=== PATIENT | female | born 1985 | race Hispanic/Latino ===

== ENCOUNTER → 2022-01-29 10:57 | Outpatient (CLI) | payer SELFPAY | PROVIDERS: Referring Provider Internal Medicine; Visit Provider Internal Medicine | DX: Z23 Encounter for immunization (principal) | CPT/HCPCS: 90471; 90686 ==

== ENCOUNTER → 2022-03-23 17:55 | Outpatient (CLI) | payer OTHER, SELFPAY ==
[2022-03-23 18:54] LABS: Influenza A - CEPHEID Flu A NEGATIVE (NEGATIVE); Influenza B - CEPHEID Flu B NEGATIVE (NEGATIVE); Respiratory Syncytial Virus Negative (Negative)
[2022-03-23 18:59] LABS: COVID-19 CEPHEID 4-PLEX PCR Negative (Negative)
== END ==
PROVIDERS: Visit Provider Physician Assistant
DX: R09.81 Nasal congestion (principal)
CPT/HCPCS: 0241U

== ENCOUNTER → 2022-11-06 12:27 | Outpatient (CLI) | payer OTHER, SELFPAY ==
--- NOTE | 2022-11-06 | DI.RAD.S_ITS ---
PROCEDURE: XR CERVICAL SPINE 2V OR 3V INDICATIONS: NECK PAIN TECHNIQUE: 3 view(s) of the cervical spine were acquired. COMPARISON: None. FINDINGS: Bones: No fractures or dislocations to the C7 level. The lateral masses of C1 appear intact on the odontoid view. No suspicious bony lesions. There is loss of the normal lordotic curvature of the cervical spine. Disc space narrowing at C5-6. Soft tissues: No prevertebral soft tissue swelling. IMPRESSION: Degenerative disc disease at C5-6. Dictated by: Patrick Escobedo M.D. on 11/06/2022 at 13:37 Approved by: aPtrick Escobedo M.D. on 11/06/2022 at 13:38
[2022-11-06 13:44] LABS: HCG Quantitative /Beta subunit 14885 mIU/mL
== END ==
PROVIDERS: PCP Family Medicine; Referring Provider Family Medicine; Visit Provider Family Medicine
DX: E03.9 Hypothyroidism, unspecified (principal); Z34.90 Encounter for supervision of normal pregnancy, unspecified, unspecified trimester
CPT/HCPCS: 36415; 72040; 84702

== ENCOUNTER → 2022-12-20 16:51 | Outpatient (CLI) | payer OTHER, SELFPAY ==
--- NOTE | 2022-12-20 16:53 | DI.US.S_ITS ---
PROCEDURE: US OB <= 14 WEEKS FETUS INDICATIONS: SIZE AND DATES OUTSIDE/PRIOR DATING DATA: Last menstrual period (LMP): 10/01/2022. LMP-based estimated date of delivery (ALYSSA): 07/08/2023. First dating scan (date and location): Today 12/20/2022. Estimated date of delivery (ALYSSA) from first dating scan: 07/04/2023. TECHNIQUE: Real-time scanning was performed of the fetus and maternal pelvic organs, with image documentation. COMPARISON: None. FINDINGS: [place]-rump length is 5.2 cm corresponding to an ultrasound age of 12 weeks. Heart rate is 163 beats per minute. Placenta is posterior. IMPRESSION: Living intrauterine gestation, clinical dates concordant with ultrasound. Ultrasound age is 12 weeks. Dictated by: Gabino Apodaca M.D. on 12/20/2022 at 19:03 Approved by: Gabino Apodaca M.D. on 12/20/2022 at 19:05
== END ==
PROVIDERS: PCP Family Medicine; Referring Provider Family Medicine; Visit Provider Family Medicine
DX: Z36.87 Encounter for antenatal screening for uncertain dates (principal); Z3A.12 12 weeks gestation of pregnancy
CPT/HCPCS: 76801

== ENCOUNTER → 2023-01-15 08:35 | Outpatient (CLI) | payer OTHER, SELFPAY | PROVIDERS: Family Provider Family Medicine; PCP Family Medicine; Visit Provider Nurse Practitioner Family | DX: J02.9 Acute pharyngitis, unspecified (principal) | CPT/HCPCS: 87070 ==

== ENCOUNTER → 2023-02-06 16:33 | Outpatient (CLI) | payer OTHER, SELFPAY | PROVIDERS: Family Provider Family Medicine; PCP Family Medicine; Referring Provider Family Medicine; Visit Provider Family Medicine | DX: Z23 Encounter for immunization (principal) | CPT/HCPCS: 90471; 90686 ==

== ENCOUNTER → 2023-02-14 18:12 | Outpatient (CLI) | payer OTHER, SELFPAY | PROVIDERS: Family Provider Family Medicine; PCP Family Medicine; Visit Provider Physician Assistant | DX: R30.0 Dysuria (principal) | CPT/HCPCS: 87086 ==

== ENCOUNTER 2023-02-14 18:42 | Emergency (ER) | payer OTHER, SELFPAY ==
[2023-02-14 18:46] VITALS: BP 141/79; PULSE 83; RESP 16; TEMP 36.6; O2SAT 100; BMI 41.5
[2023-02-14 18:51] VITALS: PULSE 78; O2SAT 100
[2023-02-14 19:11] VITALS: BP 117/58; RESP 16
[2023-02-14 19:15] LABS: Add Manual Diff / Slide Review NO; Basophils Absolute Auto 100 /uL (0-100); Basophils Percent Auto 0.5 % (0-2); Eosinophils Absolute Auto 0 /uL (0-450); Eosinophils Percent Auto 0.3 % (2-4); Hematocrit 38.9 % (36-46); Hemoglobin 13.7 g/dL (12.0-16.0); Lymphocytes Absolute Auto 1100 /uL (1100-4500); Mean Corpuscular HGB Conc 35.1 % (30-36); Mean Corpuscular Hemoglobin 32.7 PG (26-34); Monocytes Absolute Auto 500 /uL (0-900); Monocytes Percent Auto 3.4 % (3-14); Neutrophils Absolute Auto 12300 /uL (1500-7000); Neutrophils Percent Auto 87.8 % (50-75); Platelet Count 226 X10^3/uL (150-400); Red Blood Cell Count 4.18 X10^6/uL (4.0-5.2); Red Cell Distribution Width 13.4 % (11.6-14.8)
[2023-02-14 19:22] LABS: Alanine Aminotransferase 27 IU/L (<35); Albumin Globulin Ratio 1.2 (1.0-2.8); Alkaline Phosphatase 71 U/L (38-126); Aspartate Aminotransferase 25 IU/L (14-36); BUN Creatinine Ratio 14.5 (6-22); Bilirubin Total 0.4 mg/dL (0.2-1.3); Blood Urea Nitrogen 9 mg/dL (7-17); Calcium 9.1 mg/dL (8.4-10.2); Carbon Dioxide 22 mmol/L (22-32); Chloride 100 mmol/L (98-107); Estimated Glomerular Filt Rate > 60 mL/min (>60); Globulin 3.4 g/dL (1.7-4.1); Glucose 108 mg/dL (70-100); HEMOLYSIS < 15 (0-50); Lipase 107 U/L (23-300); Potassium 3.5 mmol/L (3.4-5.1); Sodium 132 mmol/L (137-145); Total Protein 7.4 g/dL (6.3-8.2)
[2023-02-14] MEDS: SODIUM CHLORIDE 0.9% 1,000 ML 1000 ML IV (19:25)
--- NOTE | 2023-02-14 20:35 | ED.PREGNANCY ---
HPI - General Chief complaint: Abdominal Pain Stated complaint: abd pain/ 19 weeks Time Seen by Provider: 02/14/23 18:52 Source: patient Mode of arrival: Ambulatory Limitations: no limitations History of Present Illness HPI Narrative: 37-year-old female 19 weeks and 3 days with history of anxiety, hypothyroidism, on aspirin 81 mg daily. Patient notes today at about 3:00 p.m. she started having significant left-sided abdominal pain on the anterior abdomen radiating laterally but not to the flank. She states it lasted for about 2 hours coming and going in waves, she had some nausea and vomiting x2. She felt sweaty each time. Lightheaded but no passing out. No chest pain no shortness of breath no fevers or chills. She is been having regular stools no black or bloody stools, no dysuria urgency but has had frequency. She states her your leg bloody. No discharge. She denies any vaginal bleeding or fluid leakage. Patient states she is had a prior cholecystectomy she states it felt similar to when she had gallstones. She is had prior . Allergic to Zoloft. No tobacco, alcohol or illicit. Her care is in [place]. Related Data Home Medications Medication Instructions Recorded Confirmed levothyroxine 50 mcg capsule 50 mcg PO DAILY 03/23/22 02/14/23 venlafaxine 150 mg 150 mg PO DAILY 03/23/22 02/14/23 capsule,extended release 24 hr triamcinolone acetonide 0.1 % 1 applic topical DAILY 08/14/22 02/14/23 topical cream Previous Rx's Medication Instructions Recorded albuterol sulfate 90 mcg/actuation 2 puff inhalation Q4H PRN 08/14/22 aerosol inhaler shortness of breath or wheezing #8.5 grams Allergies Allergy/AdvReac Type Severity Reaction Status Date / Time sertraline [From Zoloft] Allergy Mild Panic Verified 02/14/23 18:31 attacks Review of Systems Review of Systems ROS Unobtainable: All systems reviewed & are unremarkable except as noted in HPI and below Exam Narrative Exam Narrative: GEN: Obese well appearing female, alert and oriented x 3, patient appears to be in mild distress. HEENT: Atraumatic, pupils are equal round reactive to light, extraocular movements are intact, nares are clear, there is no conjunctival pallor. Throat is clear without any exudates, erythema, tonsillar enlargement or uvular deviation HEART: Regular rate and rhythm without murmur, clicks, rubs. LUNGS:Lungs clear to auscultation, no wheezes, rales, crackles, chest moves symmetrically ABD:bowel sounds normal, soft, very mild left upper quadrant tenderness, no guarding, rebound, rigidity, no masses noted, no hepatosplenomegaly :No CVA tenderness, gravid. MSCL: Non-tender, no muscle atrophy, muscles strength 5/5 upper and lower extremities, full range of motion, normal gait NEURO:CN 2-12 intact, sensation normal SKIN: No rash, erythema or other skin changes Initial Vital Signs Initial Vital Signs: Vital Signs Temperature 97.9 F 02/14/23 18:46 Pulse Rate 83 02/14/23 18:46 Respiratory Rate 16 02/14/23 18:46 Blood Pressure 141/79 H 02/14/23 18:46 Pulse Oximetry 100 02/14/23 18:46 Oxygen Delivery Method Room Air 02/14/23 18:46 Course Orders Ordered: ED Orders 02/14/23 20:10 Urinalysis and Microscopic Stat 02/14/23 20:34 US OB limited Stat Discontinued Medications Sodium Chloride (Normal Saline 0.9%) 1,000 mls @ 1,000 mls/hr IV BOLUS ONE Stop: 02/14/23 19:51 Last Infusion: 02/14/23 20:35 Dose: Infused Documented By: Admin: 02/14/23 19:25 Dose: 1,000 mls/hr Documented By: SHANTAL Ondansetron HCl (Ondansetron 4 Mg/2 Ml Inj) 4 mg IV NOW ONE Stop: 02/14/23 18:53 Last Admin: 02/14/23 19:25 Dose: Not Given Documented By: SB Vital Signs Vital signs: Vital Signs - 8 hr 02/14/23 22:29 02/14/23 22:30 02/14/23 22:30 Pulse Rate 87 Blood Pressure 109/60 Pulse Oximetry 100 100 [facility] - OB/Uterine Contractions Lab Data 02/14/23 19:03 02/14/23 19:03 Labs: Lab Results 02/14/23 02/14/23 Range/Units 19:03 20:10 WBC 14.0 H (4.5-11.0) X10^3/uL RBC 4.18 (4.0-5.2) X10^6/uL Hgb 13.7 (12.0-16.0) g/dL Hct 38.9 (36-46) % MCV 93.0 (80-100) fL MCH 32.7 (26-34) PG MCHC 35.1 (30-36) % RDW 13.4 (11.6-14.8) % Plt Count 226 (150-400) X10^3/uL Neut % (Auto) 87.8 H (50-75) % Lymph % (Auto) 8.0 L (25-40) % [place] % (Auto) 3.4 (3-14) % Eos % (Auto) 0.3 L (2-4) % Baso % (Auto) 0.5 (0-2) % Neut # (Auto) 24634 H (8309-1805) /uL Lymph # (Auto) 1100 (5488-9964) /uL Beaver # (Auto) 500 (0-900) /uL Eos # (Auto) 0 (0-450) /uL Baso # (Auto) 100 (0-100) /uL Sodium 132 L (137-145) mmol/L Potassium 3.5 (3.4-5.1) mmol/L Chloride 100 (98-107) mmol/L Carbon Dioxide 22 (22-32) mmol/L BUN 9 (7-17) mg/dL Creatinine 0.62 (0.52-1.04) mg/dL Estimated GFR > 60 (>60) mL/min BUN/Creatinine Ratio 14.5 (6-22) Glucose 108 H (70-100) mg/dL Calcium 9.1 (8.4-10.2) mg/dL Total Bilirubin 0.4 (0.2-1.3) mg/dL AST 25 (14-36) IU/L ALT 27 (<35) IU/L Alkaline Phosphatase 71 (38-126) U/L Total Protein 7.4 (6.3-8.2) g/dL Albumin 4.0 (3.5-5.0) g/dL Globulin 3.4 (1.7-4.1) g/dL Albumin/Globulin Ratio 1.2 (1.0-2.8) Lipase 107 (23-300) U/L Urine Color Yellow Urine Appearance Clear Urine pH 5.5 (4.5-8.0) Ur Specific [place] <=1.005 (1.000-1.035) Urine Protein Negative (Negative) Urine Glucose (UA) Negative (Negative) g/dL Urine Ketones 2+ H (NEGATIVE) Urine Occult Blood Negative (Negative) Urine Nitrate Negative (Negative) Urine Bilirubin Negative (NEGATIVE) Urine Urobilinogen 1.0 (0.2) E.U./dL Ur Leukocyte Esterase Negative (NEGATIVE) Urine RBC None seen (0-5/HPF) Urine WBC None seen (0-5/HPF) Ur Squamous Epith Cells 0-1 /hpf (0-5/HPF) Urine Bacteria None seen (None) Ur Culture Indicated? Cult not indicated Urine Dip Bedside Urine Glucose Negative Bedside Urine Bilirubin - Negative Bedside Urine Ketone ++ 40 Urine Specific [place] 1.005 Bedside Urine Occult Blood - Negative Bedside Urine pH 6.0 Bedside Urine Protein - Negative Bedside Urine Urobilinogen - Negative Bedside Urine Nitrite - Negative Bedside Urine Leukocytes - Negative Esterase Imaging Data US - OB: Radiologist's Impression: Close Obstetrics Ultrasound (Signed) Clayton Cantu - 02/14/23 Ultrasound (Signed) Gabino Apodaca - 12/20/22 Cervical Spine X-Ray (Signed) Patrick Escobedo - 11/06/22 Launch?[place] [address] Ultrasound Report Signed Patient: An Jett MR#: [id number] : 1985 Acct:[id number] Age/Sex: 37 / F Date of Service: 02/14/23 Loc: ED Accession Number: [id number] Procedure: US OB limited Ordering Provider: Patricia Loving D.O. PROCEDURE: US OB LIMITED INDICATIONS: LEFT SIDE PAIN OUTSIDE/PRIOR DATING DATA: Last menstrual period (LMP): 10/01/2022. LMP-based estimated date of delivery (ALYSSA): 07/08/2023. First dating scan (date and location): 12/20/2022. Estimated date of delivery (ALYSSA) from first dating scan: 07/04/2023. TECHNIQUE: Real-time scanning was performed of the fetus, with image documentation. Endovaginal scanning: Not performed COMPARISON: [facility], , OB <= 14 WEEKS FETUS, 12/20/2022, 17:01. FINDINGS: A single living intrauterine gestation is present. Presentation: Vertex. Placenta: Placental position is posterior, without previa. Amniotic fluid index: 14.3 cm, normal range is 5-24 cm. Single deepest vertical pocket is 4.4 cm. heart rate: 131 beats per minute. Maternal cervical canal: 4.7 cm long. Normal lower limit is 2.5 cm. estimated gestational age: 19 weeks 3 days Left maternal pelviectasis without rush hydronephrosis IMPRESSION: 1. Single living intrauterine . 2. No evidence of placental abruption. 3. Maternal cervix is long and closed. Dictated by: Clayton Cantu M.D. on 02/14/2023 at 22:35 Approved by: Clayton Cantu M.D. on 02/14/2023 at 22:38 MDM Narrative Medical decision making narrative: female female 19 weeks with left lower abdominal pain that has since improved but is still slightly present. Patient has a white count of 14 otherwise normal CBC, CMP, LFTs, urine did not show blood, no protein to have some ketones. Initial blood pressure was 140/79 but repeats have been much more appropriate at 117. and patient does not have any right upper quadrant tenderness. Discussed with patient would like to obtain OB ultrasound and left-sided abdominal ultrasound, her urine does not show signs of making kidney stones or infection less likely. OB ultrasound/limited abdominal with kidney preliminary does not show any acute change. Patient does not wish to continue to wait for the report to come back we discussed there could be discrepancy. She understands pain is controlled at this time. Blood pressure has improved here in the department. Patient's urine does not show obvious signs of infection. Patient is felt appropriate for discharge home but discussed if she is having worsening symptoms needs to return. Ultrasound OB limited shows no acute change 19 weeks and 3 days with a heart rate of 131 left maternal palpitations without rush hydronephrosis. Discharge Plan Departure Patient Disposition: Home Clinical Impression: Abdominal pain affecting Instructions: DI for Abdominal Pain -- Early Activity Restrictions/Additional Instructions: Please follow-up with your physician for recheck. Your imaging is still pending I do not have the final report. Please return for new or worsening pain, fevers, persistent vomiting, lightheadedness or passing out, vaginal bleeding, new swelling in her extremities or other new or concerning changes. Prescriptions: No Action venlafaxine 150 mg capsule,extended release 24hr 150 mg PO DAILY levothyroxine 50 mcg capsule 50 mcg PO DAILY triamcinolone acetonide 0.1 % cream 1 applic topical DAILY albuterol sulfate 90 mcg/actuation HFA aerosol inhaler 2 puff inhalation Q4H PRN (Reason: shortness of breath or wheezing) Qty: 8.5 3RF Referrals: Loree Ashton DO [Primary Care Provider] - Stand Alone Forms: Patient Portal/API
[2023-02-14 21:21] LABS: Appearance Urine UA CLEAR; Bilirubin Urine UA NEGATIVE (NEGATIVE); Color Urine UA YELLOW; Glucose Urine UA NEGATIVE (Negative); Ketones Urine UA 2+ (NEGATIVE); Leukocyte Esterase Urine UA NEGATIVE (NEGATIVE); Nitrite Urine UA NEGATIVE (Negative); Occult Blood Urine UA NEGATIVE (Negative); Protein Urine UA NEGATIVE (Negative); Specific Gravity Urine UA <=1.005 (1.000-1.035)
[2023-02-14 21:40] LABS: pH Urine UA 5.5 (4.5-8.0)
[2023-02-14 21:52] LABS: Bacteria Urine None Seen; Culture Indicated Urine Cult Not Indicated; RBC Urine None Seen (0-5/HPF); Squamous Epithelial Cell Urine 0-1 /HPF (0-5/HPF); WBC Urine None Seen (0-5/HPF)
[2023-02-14 22:29] VITALS: O2SAT 100
[2023-02-14 22:30] VITALS: BP 109/60; PULSE 87; O2SAT 100
== END 2023-02-14 22:35 | disposition home or self-care (01) ==
PROVIDERS: Emergency Provider Emergency Medicine; Family Provider Family Medicine; PCP Family Medicine
DX: O26.92 Pregnancy related conditions, unspecified, second trimester (principal); R10.9 Unspecified abdominal pain; Z3A.19 19 weeks gestation of pregnancy; R30.0 Dysuria
CPT/HCPCS: 36415; 76815; 80053; 81001; 81003; 83690; 85025; 87086; 96360; 99284

== ENCOUNTER 2023-02-18 10:00 | Outpatient (RCR) | payer OTHER, SELFPAY ==
--- NOTE | 2023-01-16 15:45 | PT.OIE ---
Current Diagnoses Paresthesia of skin (01/16/23) Past Medical History (Last Updated 11/06/22 @ 12:21 by Loree Ashton DO) Encounter for IUD removal (~08/14/22) GDM (gestational diabetes mellitus) Visit Care Team Role Provider Type Loree Ashton DO Attending Provider Physician Family Provider Primary Care Provider Referring Provider Specialty: Medical Address: [address] [place] [address], [address], [place], [address] Email: [email or web address] Physical Therapy Initial Evaluation PT-OP-A Visit Information Start: 01/16/23 13:32 Freq: Status: Active Protocol: Document 01/16/23 15:33 ED (Rec: 01/16/23 15:44 ED [id number]) Out-Patient Physical Therapy Visit Information Visit Information Visit Type Initial Evaluation Visit Start Time 13:15 Visit Stop Time 14:00 Total Visit Minutes 45 Visit Number 1 Evaluation Information Evaluation Date 01/16/23 PT-OP-B Current Condition Start: 01/16/23 13:32 Freq: Status: Active Protocol: Document 01/16/23 15:33 ED (Rec: 01/16/23 15:44 ED [id number]) Current Condition History of Current Condition Onset Date 2019 Current Complaints R radiculopathy History of Current Condition Pt states that when she had her child in 2019 that she was experiencing pretty intense radiculopathy in her R hand and sometimes up her arm. She denies it going away after having her child. She is currently and is here for the same radiculopathy. 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 She notes that when she sleeps, she sometimes has her R hand over her head and will wake up d/t paresthesia in her hand. She states the paresthesia starts in her pinky and ring finger. PT-OP-C Subjective Start: 01/16/23 13:32 Freq: Status: Active Protocol: Document 01/16/23 15:33 ED (Rec: 01/16/23 15:44 ED [id number]) Patient Questionnaires Quick Dash- Upper Extremity Quick Dash UE Score 27.3 / 100 = 27.3 % Quick Dash UE Impairment 20 to 39% Impaired (Score 20- 39) PT-OP-K Range of Motion Start: 01/16/23 13:32 Freq: Status: Active Protocol: Document 01/16/23 15:33 ED (Rec: 01/16/23 15:44 ED [id number]) Cervical Spine Range of Motion Cervical Spine Active Testing Position Sitting Flexion 50 Extension 60 Rotation Left 90 Rotation Right 90 Shoulder Goniometric Range of Motion Shoulder Right Active Shoulder ROM WFL Yes Testing Position Sitting Flexion 170 Abduction 170 Left Active Shoulder ROM WFL Yes Testing Position Sitting Flexion 170 Abduction 170 PT-OP-L Special Tests Start: 01/16/23 13:32 Freq: Status: Active Protocol: Document 01/16/23 15:33 ED (Rec: 01/16/23 15:44 ED [id number]) Special Tests Cervical Spine Special Tests Traction Test Results + Foraminal Compression Test Results - PT-OP-M Strength Start: 01/16/23 13:32 Freq: Status: Active Protocol: Document 01/16/23 15:33 ED (Rec: 01/16/23 15:44 ED [id number]) Shoulder Strength Shoulder Manual Muscle Testing Right Flexion 4+ Good+ Extension 4+ Good+ Abduction (C5) 4+ Good+ Left Flexion 4+ Good+ Extension 4+ Good+ Abduction (C5) 4+ Good+ PT-OP-T Assessment and Plan Start: 01/16/23 13:32 Freq: Status: Active Protocol: Document 01/16/23 15:33 ED (Rec: 01/16/23 15:44 ED [id number]) Physical Therapy Assessment Rehab Potential Rehabilitation Potential Fair Evaluation Complexity Number of Personal Factors/Comorbidities 1-2 Number of Body Systems Impaired 1-2 Clinical Presentation at Evaluation Stable Impairments Impairments Activity Tolerance,Sensation, Strength Goals QuickDASH Care Home Goal (LTG) Pt will improve QuickDash score by >9 points to a score of <18/100. LTG Duration 6 weeks % improvement Impairment % improvement Short Term Goal (STG) Pt will report 15% improvement in R hand paresthesia during daily activities and/or at night. STG Duration 3 weeks Lawyers Goal (LTG) Pt will report 40% improvement in R hand paresthesia during daily activities and/or at night. LTG Duration 6 weeks Assessment Summary Assessment Pt reported to PT c/ complaints of paresthesia in R hand that most often occurs at night or during daily activities that expose patient to positions for a prolonged period of time such as bike riding, working on a computer, or doing fine motor skills. Paresthesia seemed to follow ulnar nerve distribution. Paresthesia was not reproduced during evaluation today. Pt demonstrated good ROM in neck and shoulder that did not exacerbate paresthesia. Pt provided HEP of : ulnar nerve glides, thoracic rotation, open books, ulnar nerve glides and scalene stretch. PT will start with mobility and flexibility drills and progress to more resistance exercises if stretching does not initially offer relief. Pt encouraged to sleep while hugging pillow to avoid getting arm in overhead position which seems to consistently make her paresthesia worse.
--- NOTE | 2023-01-16 15:45 | PT.OPPOC ---
Physical, Occupational & Speech Therapy At [facility] Current Diagnoses Paresthesia of skin (01/16/23) Visit Care Team Role Provider Type Loree Ashton DO Attending Provider Physician Family Provider Primary Care Provider Referring Provider Specialty: Medical Address: [address] [place] [address], [address], [place], [address] Email: [email or web address] Plan Of Care PT-OP-T Assessment and Plan Start: 01/16/23 13:32 Freq: Status: Active Protocol: Document 01/16/23 15:33 ED (Rec: 01/16/23 15:44 ED [id number]) Physical Therapy Assessment Rehab Potential Rehabilitation Potential Fair Evaluation Complexity Number of Personal Factors/Comorbidities 1-2 Number of Body Systems Impaired 1-2 Clinical Presentation at Evaluation Stable Impairments Impairments Activity Tolerance,Sensation, Strength Goals QuickDASH Prison Goal (LTG) Pt will improve QuickDash score by >9 points to a score of <18/100. LTG Duration 6 weeks % improvement Impairment % improvement Short Term Goal (STG) Pt will report 15% improvement in R hand paresthesia during daily activities and/or at night. STG Duration 3 weeks Border Police Goal (LTG) Pt will report 40% improvement in R hand paresthesia during daily activities and/or at night. LTG Duration 6 weeks Assessment Summary Assessment Pt reported to PT c/ complaints of paresthesia in R hand that most often occurs at night or during daily activities that expose patient to positions for a prolonged period of time such as bike riding, working on a computer, or doing fine motor skills. Paresthesia seemed to follow ulnar nerve distribution. Paresthesia was not reproduced during evaluation today. Pt demonstrated good ROM in neck and shoulder that did not exacerbate paresthesia. Pt provided HEP of : ulnar nerve glides, thoracic rotation, open books, ulnar nerve glides and scalene stretch. PT will start with mobility and flexibility drills and progress to more resistance exercises if stretching does not initially offer relief. Pt encouraged to sleep while hugging pillow to avoid getting arm in overhead position which seems to consistently make her paresthesia worse. Electronically Signed by: Mao Guzman, PT 01/16/23 [id number] If you are in agreement with this Plan of Care, please return a signed and dated copy. I have reviewed this Plan of Care and certify that the skilled therapy services above are required to meet the patient?s needs. Physician Signature Date Printed Name and Credentials Clinical Instructor Signature Printed Name and Credentials
--- NOTE | 2023-01-21 15:48 | PT.OTN ---
Current Diagnoses Paresthesia of skin (01/21/23) Physical Therapy Treatment Note PT-OP-A Visit Information Start: 01/16/23 13:32 Freq: Status: Active Protocol: Document 01/21/23 15:42 ED (Rec: 01/21/23 15:48 ED [id number]) Out-Patient Physical Therapy Visit Information Visit Information Visit Type Treatment Note Visit Start Time 15:15 Visit Stop Time 15:45 Total Visit Minutes 30 Visit Number 2 PT-OP-B Current Condition Start: 01/16/23 13:32 Freq: Status: Active Protocol: Document 01/16/23 15:33 ED (Rec: 01/16/23 15:44 ED [id number]) Current Condition History of Current Condition Onset Date 2019 Current Complaints R radiculopathy History of Current Condition Pt states that when she had her child in 2019 that she was experiencing pretty intense radiculopathy in her R hand and sometimes up her arm. She denies it going away after having her child. She is currently and is here for the same radiculopathy. 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 She notes that when she sleeps, she sometimes has her R hand over her head and will wake up d/t paresthesia in her hand. She states the paresthesia starts in her pinky and ring finger. PT-OP-C Subjective Start: 01/16/23 13:32 Freq: Status: Active Protocol: Document 01/21/23 15:42 ED (Rec: 01/21/23 15:48 ED [id number]) OP-PT Subjective Patient Comments Patient Comments Pt states that the ulnar nerve glides worked well for her. She noticed much less paresthesia in her 4th and 5th digits of her R hand when waking up during the night but notes that she still had paresthesia in the rest of the fingers. PT-OP-K Range of Motion Start: 01/16/23 13:32 Freq: Status: Active Protocol: Document 01/16/23 15:33 ED (Rec: 01/16/23 15:44 ED [id number]) Cervical Spine Range of Motion Cervical Spine Active Testing Position Sitting Flexion 50 Extension 60 Rotation Left 90 Rotation Right 90 Shoulder Goniometric Range of Motion Shoulder Right Active Shoulder ROM WFL Yes Testing Position Sitting Flexion 170 Abduction 170 Left Active Shoulder ROM WFL Yes Testing Position Sitting Flexion 170 Abduction 170 PT-OP-L Special Tests Start: 01/16/23 13:32 Freq: Status: Active Protocol: Document 01/16/23 15:33 ED (Rec: 01/16/23 15:44 ED [id number]) Special Tests Cervical Spine Special Tests Traction Test Results + Foraminal Compression Test Results - PT-OP-M Strength Start: 01/16/23 13:32 Freq: Status: Active Protocol: Document 01/16/23 15:33 ED (Rec: 01/16/23 15:44 ED [id number]) Shoulder Strength Shoulder Manual Muscle Testing Right Flexion 4+ Good+ Extension 4+ Good+ Abduction (C5) 4+ Good+ Left Flexion 4+ Good+ Extension 4+ Good+ Abduction (C5) 4+ Good+ PT-OP-Q Treatments Start: 01/16/23 13:32 Freq: Status: Active Protocol: Document 01/21/23 15:42 ED (Rec: 01/21/23 15:48 ED [id number]) Therapeutic Exercises Supine Exercises bridge Comments staggered 2x10 Sidelying Exercises open book Reps/Minutes x10 ea Sitting Exercises pigeon stretch Reps/Minutes x30-60'' t-spine rotation Reps/Minutes x10 ulnar/median nerve glides Reps/Minutes x10 ea PT-OP-T Assessment and Plan Start: 01/16/23 13:32 Freq: Status: Active Protocol: Document 01/21/23 15:42 ED (Rec: 01/21/23 15:48 ED [id number]) Physical Therapy Assessment Goals QuickDASH Business Supervisor Goal (LTG) Pt will improve QuickDash score by >9 points to a score of <18/100. LTG Duration 6 weeks % improvement Impairment % improvement Short Term Goal (STG) Pt will report 15% improvement in R hand paresthesia during daily activities and/or at night. STG Duration 3 weeks Business Supervisor Goal (LTG) Pt will report 40% improvement in R hand paresthesia during daily activities and/or at night. LTG Duration 6 weeks Assessment Summary Assessment Pt reported improvements in ulnar nerve distribution paresthesia but continued to have symptoms in median nerve distribution. PT provided patient c/ HEP of median nerve glides to do throughout the day and before bed.
--- NOTE | 2023-01-24 08:50 | PT.OTN ---
Current Diagnoses Paresthesia of skin (01/24/23) Physical Therapy Treatment Note PT-OP-A Visit Information Start: 01/16/23 13:32 Freq: Status: Active Protocol: Document 01/24/23 08:43 ED (Rec: 01/24/23 08:50 ED [id number]) Out-Patient Physical Therapy Visit Information Visit Information Visit Type Treatment Note Visit Start Time 08:10 Visit Stop Time 08:50 Total Visit Minutes 40 Visit Number 3 PT-OP-B Current Condition Start: 01/16/23 13:32 Freq: Status: Active Protocol: Document 01/16/23 15:33 ED (Rec: 01/16/23 15:44 ED [id number]) Current Condition History of Current Condition Onset Date 2019 Current Complaints R radiculopathy History of Current Condition Pt states that when she had her child in 2019 that she was experiencing pretty intense radiculopathy in her R hand and sometimes up her arm. She denies it going away after having her child. She is currently and is here for the same radiculopathy. 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 She notes that when she sleeps, she sometimes has her R hand over her head and will wake up d/t paresthesia in her hand. She states the paresthesia starts in her pinky and ring finger. PT-OP-C Subjective Start: 01/16/23 13:32 Freq: Status: Active Protocol: Document 01/24/23 08:43 ED (Rec: 01/24/23 08:50 ED [id number]) OP-PT Subjective Patient Comments Patient Comments Pt notes that her hand paresthesia is improving especially when she does her exercises. She hasn't been doing them every night though. PT-OP-K Range of Motion Start: 01/16/23 13:32 Freq: Status: Active Protocol: Document 01/16/23 15:33 ED (Rec: 01/16/23 15:44 ED [id number]) Cervical Spine Range of Motion Cervical Spine Active Testing Position Sitting Flexion 50 Extension 60 Rotation Left 90 Rotation Right 90 Shoulder Goniometric Range of Motion Shoulder Right Active Shoulder ROM WFL Yes Testing Position Sitting Flexion 170 Abduction 170 Left Active Shoulder ROM WFL Yes Testing Position Sitting Flexion 170 Abduction 170 PT-OP-L Special Tests Start: 01/16/23 13:32 Freq: Status: Active Protocol: Document 01/16/23 15:33 ED (Rec: 01/16/23 15:44 ED [id number]) Special Tests Cervical Spine Special Tests Traction Test Results + Foraminal Compression Test Results - PT-OP-M Strength Start: 01/16/23 13:32 Freq: Status: Active Protocol: Document 01/16/23 15:33 ED (Rec: 01/16/23 15:44 ED [id number]) Shoulder Strength Shoulder Manual Muscle Testing Right Flexion 4+ Good+ Extension 4+ Good+ Abduction (C5) 4+ Good+ Left Flexion 4+ Good+ Extension 4+ Good+ Abduction (C5) 4+ Good+ PT-OP-Q Treatments Start: 01/16/23 13:32 Freq: Status: Active Protocol: Document 01/24/23 08:43 ED (Rec: 01/24/23 08:50 ED [id number]) Therapeutic Exercises Sidelying Exercises glute matrix Sidelying Exercise Name clam, R. clam, hip flexion, s/ l abd Reps/Minutes x10-15 ea Sitting Exercises ulnar/median nerve glides Reps/Minutes x10 ea Other Exercises banded walk Other Exercise Name lateral Resistance turquoise band Reps/Minutes 2x10 feet Therapeutic Activity Therapeutic Activity step up Name step up Reps/Minutes 2x10 Comments 8'' PT-OP-T Assessment and Plan Start: 01/16/23 13:32 Freq: Status: Active Protocol: Document 01/24/23 08:43 ED (Rec: 01/24/23 08:50 ED [id number]) Physical Therapy Assessment Goals QuickDASH Operators School Manager Goal (LTG) Pt will improve QuickDash score by >9 points to a score of <18/100. LTG Duration 6 weeks % improvement Impairment % improvement Short Term Goal (STG) Pt will report 15% improvement in R hand paresthesia during daily activities and/or at night. STG Duration 3 weeks Intermediate Goal (LTG) Pt will report 40% improvement in R hand paresthesia during daily activities and/or at night. LTG Duration 6 weeks Physical Therapy Plan Frequency and Duration Frequency of Treatment 2x/Week Duration of treatment (weeks) 10 Plan of Care Start Date 01/24/23 Plan of Care End Date 12/28/23 Therapeutic Interventions Therapeutic Interventions Home Exercise Program,Joint Mobilizations,Manual Therapy, Neuromuscular Re-education, Patient/Caregiver Education, Soft Tissue Mobilization, Taping,Therapeutic Activities, Therapeutic Exercises Next Visit Focus/Plan Next Note Type Treatment Note Next Visit Plan check paresthesia, glute matrix, banded walk, step up variations
--- NOTE | 2023-01-28 10:46 | PT.OTN ---
Current Diagnoses Paresthesia of skin (01/28/23) Physical Therapy Treatment Note PT-OP-A Visit Information Start: 01/16/23 13:32 Freq: Status: Active Protocol: Document 01/28/23 10:41 ED (Rec: 01/28/23 10:46 ED [id number]) Out-Patient Physical Therapy Visit Information Visit Information Visit Type Treatment Note Visit Start Time 10:00 Visit Stop Time 10:40 Total Visit Minutes 40 Visit Number 4 PT-OP-B Current Condition Start: 01/16/23 13:32 Freq: Status: Active Protocol: Document 01/16/23 15:33 ED (Rec: 01/16/23 15:44 ED [id number]) Current Condition History of Current Condition Onset Date 2019 Current Complaints R radiculopathy History of Current Condition Pt states that when she had her child in 2019 that she was experiencing pretty intense radiculopathy in her R hand and sometimes up her arm. She denies it going away after having her child. She is currently and is here for the same radiculopathy. 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 She notes that when she sleeps, she sometimes has her R hand over her head and will wake up d/t paresthesia in her hand. She states the paresthesia starts in her pinky and ring finger. PT-OP-C Subjective Start: 01/16/23 13:32 Freq: Status: Active Protocol: Document 01/28/23 10:41 ED (Rec: 01/28/23 10:46 ED [id number]) OP-PT Subjective Patient Comments Patient Comments Pt feels like her neck and radiculopathy are improving and just needs to be mindful of her sleeping positions. She felt like her R hip felt a little better after some of the exercises last week. PT-OP-K Range of Motion Start: 01/16/23 13:32 Freq: Status: Active Protocol: Document 01/16/23 15:33 ED (Rec: 01/16/23 15:44 ED [id number]) Cervical Spine Range of Motion Cervical Spine Active Testing Position Sitting Flexion 50 Extension 60 Rotation Left 90 Rotation Right 90 Shoulder Goniometric Range of Motion Shoulder Right Active Shoulder ROM WFL Yes Testing Position Sitting Flexion 170 Abduction 170 Left Active Shoulder ROM WFL Yes Testing Position Sitting Flexion 170 Abduction 170 PT-OP-L Special Tests Start: 01/16/23 13:32 Freq: Status: Active Protocol: Document 01/16/23 15:33 ED (Rec: 01/16/23 15:44 ED [id number]) Special Tests Cervical Spine Special Tests Traction Test Results + Foraminal Compression Test Results - PT-OP-M Strength Start: 01/16/23 13:32 Freq: Status: Active Protocol: Document 01/16/23 15:33 ED (Rec: 01/16/23 15:44 ED [id number]) Shoulder Strength Shoulder Manual Muscle Testing Right Flexion 4+ Good+ Extension 4+ Good+ Abduction (C5) 4+ Good+ Left Flexion 4+ Good+ Extension 4+ Good+ Abduction (C5) 4+ Good+ PT-OP-Q Treatments Start: 01/16/23 13:32 Freq: Status: Active Protocol: Document 01/28/23 10:41 ED (Rec: 01/28/23 10:46 ED [id number]) Cardio Equipment Treadmill Duration (Minutes) 8 Speed 2.0 Incline 4 Therapeutic Exercises Supine Exercises bridge Comments staggered 2x10 Sidelying Exercises glute matrix Sidelying Exercise Name clam, R. clam, hip flexion, s/ l abd Reps/Minutes x10-15 ea Other Exercises banded walk Other Exercise Name lateral Resistance turquoise band Reps/Minutes 2x10 feet Therapeutic Activity Therapeutic Activity step up Name cross over step up Reps/Minutes 3x10 Comments 8'' PT-OP-T Assessment and Plan Start: 01/16/23 13:32 Freq: Status: Active Protocol: Document 01/28/23 10:41 ED (Rec: 01/28/23 10:46 ED [id number]) Physical Therapy Assessment Goals QuickDASH Process Environmental Technician Goal (LTG) Pt will improve QuickDash score by >9 points to a score of <18/100. LTG Duration 6 weeks % improvement Impairment % improvement Short Term Goal (STG) Pt will report 15% improvement in R hand paresthesia during daily activities and/or at night. STG Duration 3 weeks Long-Term Goal (LTG) Pt will report 40% improvement in R hand paresthesia during daily activities and/or at night. LTG Duration 6 weeks Assessment Summary Assessment Pt reporting improved neck pain and radiculopathy symptoms with her stretches and adjusting her sleep positions. PT informed patient to continue trying to sleep with a pillow for shoulder support to mitigate chance of her having arm above head which typically brings her paresthesia in her hand. Physical Therapy Plan Frequency and Duration Frequency of Treatment 2x/Week Duration of treatment (weeks) 10 Plan of Care Start Date 01/24/23 Plan of Care End Date 04/24/23 Therapeutic Interventions Therapeutic Interventions Home Exercise Program,Joint Mobilizations,Manual Therapy, Neuromuscular Re-education, Patient/Caregiver Education, Soft Tissue Mobilization, Taping,Therapeutic Activities, Therapeutic Exercises Next Visit Focus/Plan Next Note Type Treatment Note Next Visit Plan check paresthesia, glute matrix (weighted?), banded walk, pigeon stretch, step up variations, quadruped hip stretch
--- NOTE | 2023-02-04 16:40 | PT.OTN ---
Current Diagnoses Paresthesia of skin (02/04/23) Physical Therapy Treatment Note PT-OP-A Visit Information Start: 01/16/23 13:32 Freq: Status: Active Protocol: Document 02/04/23 16:34 ED (Rec: 02/04/23 16:40 ED [id number]) Out-Patient Physical Therapy Visit Information Visit Information Visit Type Treatment Note Visit Start Time 16:00 Visit Stop Time 16:40 Total Visit Minutes 40 Visit Number 5 PT-OP-B Current Condition Start: 01/16/23 13:32 Freq: Status: Active Protocol: Document 01/16/23 15:33 ED (Rec: 01/16/23 15:44 ED [id number]) Current Condition History of Current Condition Onset Date 2019 Current Complaints R radiculopathy History of Current Condition Pt states that when she had her child in 2019 that she was experiencing pretty intense radiculopathy in her R hand and sometimes up her arm. She denies it going away after having her child. She is currently and is here for the same radiculopathy. 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 She notes that when she sleeps, she sometimes has her R hand over her head and will wake up d/t paresthesia in her hand. She states the paresthesia starts in her pinky and ring finger. PT-OP-C Subjective Start: 01/16/23 13:32 Freq: Status: Active Protocol: Document 02/04/23 16:34 ED (Rec: 02/04/23 16:40 ED [id number]) OP-PT Subjective Patient Comments Patient Comments Pt states that she has been slacking in doing her nerve flossing exercises before bed; she found a pillow that she can hug at night to help with the paresthesia. PT-OP-K Range of Motion Start: 01/16/23 13:32 Freq: Status: Active Protocol: Document 01/16/23 15:33 ED (Rec: 01/16/23 15:44 ED [id number]) Cervical Spine Range of Motion Cervical Spine Active Testing Position Sitting Flexion 50 Extension 60 Rotation Left 90 Rotation Right 90 Shoulder Goniometric Range of Motion Shoulder Right Active Shoulder ROM WFL Yes Testing Position Sitting Flexion 170 Abduction 170 Left Active Shoulder ROM WFL Yes Testing Position Sitting Flexion 170 Abduction 170 PT-OP-L Special Tests Start: 01/16/23 13:32 Freq: Status: Active Protocol: Document 01/16/23 15:33 ED (Rec: 01/16/23 15:44 ED [id number]) Special Tests Cervical Spine Special Tests Traction Test Results + Foraminal Compression Test Results - PT-OP-M Strength Start: 01/16/23 13:32 Freq: Status: Active Protocol: Document 01/16/23 15:33 ED (Rec: 01/16/23 15:44 ED [id number]) Shoulder Strength Shoulder Manual Muscle Testing Right Flexion 4+ Good+ Extension 4+ Good+ Abduction (C5) 4+ Good+ Left Flexion 4+ Good+ Extension 4+ Good+ Abduction (C5) 4+ Good+ PT-OP-Q Treatments Start: 01/16/23 13:32 Freq: Status: Active Protocol: Document 02/04/23 16:34 ED (Rec: 02/04/23 16:40 ED [id number]) Therapeutic Exercises Sidelying Exercises glute matrix Sidelying Exercise Name clam, R. clam, hip flexion, s/ l abd Resistance 4# Reps/Minutes x10-15 ea Sitting Exercises abd machine Sitting Exercise Name abd machine Resistance L3 Reps/Minutes 2x12 pigeon stretch Sitting Exercise Name table supported pigeon stretch Reps/Minutes x60'' Other Exercises banded walk Other Exercise Name lateral Resistance turquoise band Reps/Minutes 2x10 feet Therapeutic Activity Therapeutic Activity B stance RDL Name B stance RDL Reps/Minutes 3x8 Comments basketball to floor step up Name knowles step down Reps/Minutes 3x8 Comments 8'' PT-OP-T Assessment and Plan Start: 01/16/23 13:32 Freq: Status: Active Protocol: Document 02/04/23 16:34 ED (Rec: 02/04/23 16:40 ED [id number]) Physical Therapy Assessment Goals QuickDASH Shingle Shearing Machine Operator Goal (LTG) Pt will improve QuickDash score by >9 points to a score of <18/100. LTG Duration 6 weeks % improvement Impairment % improvement Short Term Goal (STG) Pt will report 15% improvement in R hand paresthesia during daily activities and/or at night. STG Duration 3 weeks Alf Goal (LTG) Pt will report 40% improvement in R hand paresthesia during daily activities and/or at night. LTG Duration 6 weeks Assessment Summary Assessment pt reported about 24 hour of symptom relief following last PT session so exercises were similar to the previous session's. No pain or irritation noted during movements today. Physical Therapy Plan Frequency and Duration Frequency of Treatment 2x/Week Duration of treatment (weeks) 10 Plan of Care Start Date 01/24/23 Plan of Care End Date 04/24/23 Therapeutic Interventions Therapeutic Interventions Home Exercise Program,Joint Mobilizations,Manual Therapy, Neuromuscular Re-education, Patient/Caregiver Education, Soft Tissue Mobilization, Taping,Therapeutic Activities, Therapeutic Exercises Next Visit Focus/Plan Next Note Type Treatment Note Next Visit Plan check paresthesia, glute matrix (weighted?), banded walk, pigeon stretch, side plank lifts, step up variations, quadruped hip stretch
--- NOTE | 2023-02-07 13:26 | PT.OTN ---
Current Diagnoses Paresthesia of skin (02/07/23) Physical Therapy Treatment Note PT-OP-A Visit Information Start: 01/16/23 13:32 Freq: Status: Active Protocol: Document 02/07/23 13:22 ED (Rec: 02/07/23 13:26 ED [id number]) Out-Patient Physical Therapy Visit Information Visit Information Visit Type Treatment Note Visit Note R hand paresthesia R hip Visit Start Time 12:45 Visit Stop Time 13:25 Total Visit Minutes 40 Visit Number 6 PT-OP-B Current Condition Start: 01/16/23 13:32 Freq: Status: Active Protocol: Document 01/16/23 15:33 ED (Rec: 01/16/23 15:44 ED [id number]) Current Condition History of Current Condition Onset Date 2019 Current Complaints R radiculopathy History of Current Condition Pt states that when she had her child in 2019 that she was experiencing pretty intense radiculopathy in her R hand and sometimes up her arm. She denies it going away after having her child. She is currently and is here for the same radiculopathy. 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 She notes that when she sleeps, she sometimes has her R hand over her head and will wake up d/t paresthesia in her hand. She states the paresthesia starts in her pinky and ring finger. PT-OP-C Subjective Start: 01/16/23 13:32 Freq: Status: Active Protocol: Document 02/07/23 13:22 ED (Rec: 02/07/23 13:26 ED [id number]) OP-PT Subjective Patient Comments Patient Comments Pt states that her UE paresthesia has been a little more pronounced the last few days. States she was also quite sore in her hip. PT-OP-K Range of Motion Start: 01/16/23 13:32 Freq: Status: Active Protocol: Document 01/16/23 15:33 ED (Rec: 01/16/23 15:44 ED [id number]) Cervical Spine Range of Motion Cervical Spine Active Testing Position Sitting Flexion 50 Extension 60 Rotation Left 90 Rotation Right 90 Shoulder Goniometric Range of Motion Shoulder Right Active Shoulder ROM WFL Yes Testing Position Sitting Flexion 170 Abduction 170 Left Active Shoulder ROM WFL Yes Testing Position Sitting Flexion 170 Abduction 170 PT-OP-L Special Tests Start: 01/16/23 13:32 Freq: Status: Active Protocol: Document 01/16/23 15:33 ED (Rec: 01/16/23 15:44 ED [id number]) Special Tests Cervical Spine Special Tests Traction Test Results + Foraminal Compression Test Results - PT-OP-M Strength Start: 01/16/23 13:32 Freq: Status: Active Protocol: Document 01/16/23 15:33 ED (Rec: 01/16/23 15:44 ED [id number]) Shoulder Strength Shoulder Manual Muscle Testing Right Flexion 4+ Good+ Extension 4+ Good+ Abduction (C5) 4+ Good+ Left Flexion 4+ Good+ Extension 4+ Good+ Abduction (C5) 4+ Good+ PT-OP-Q Treatments Start: 01/16/23 13:32 Freq: Status: Active Protocol: Document 02/07/23 13:22 ED (Rec: 02/07/23 13:26 ED [id number]) Therapeutic Exercises Sidelying Exercises glute matrix Sidelying Exercise Name clam, R. clam, hip flexion, s/ l abd Resistance 4# Reps/Minutes x10-15 ea Sitting Exercises pigeon stretch Sitting Exercise Name table supported pigeon stretch Reps/Minutes x60'' Other Exercises banded walk Other Exercise Name lateral Resistance turquoise band Reps/Minutes 2x10 feet Therapeutic Activity Therapeutic Activity B stance RDL Name B stance RDL Reps/Minutes 3x8 Comments small PB > basketball > 10# Neuro Re-Education Treatment Balance Activities hip airplanes Reps/Duration 2x3/leg PT-OP-T Assessment and Plan Start: 01/16/23 13:32 Freq: Status: Active Protocol: Document 02/07/23 13:22 ED (Rec: 02/07/23 13:26 ED [id number]) Physical Therapy Assessment Goals QuickDASH Legal Instruments Examiner Goal (LTG) Pt will improve QuickDash score by >9 points to a score of <18/100. LTG Duration 6 weeks % improvement Impairment % improvement Short Term Goal (STG) Pt will report 15% improvement in R hand paresthesia during daily activities and/or at night. STG Duration 3 weeks Fpc Goal (LTG) Pt will report 40% improvement in R hand paresthesia during daily activities and/or at night. LTG Duration 6 weeks Assessment Summary Assessment Pt noted that her R hand paresthesia has been a little worse the past few days. She has found a large pillow that she can hold during the night but that has not been too helpful so far. Denied pain or paresthesia during exercises today. Physical Therapy Plan Frequency and Duration Frequency of Treatment 2x/Week Duration of treatment (weeks) 10 Plan of Care Start Date 01/24/23 Plan of Care End Date 04/24/23 Therapeutic Interventions Therapeutic Interventions Home Exercise Program,Joint Mobilizations,Manual Therapy, Neuromuscular Re-education, Patient/Caregiver Education, Soft Tissue Mobilization, Taping,Therapeutic Activities, Therapeutic Exercises Next Visit Focus/Plan Next Note Type Treatment Note Next Visit Plan check paresthesia, glute matrix (weighted?), thoracic exercises (thread needle, open book), nerve glide progressions, banded walk, pigeon stretch, side plank lifts, step up variations, quadruped hip stretch, hip airplane
--- NOTE | 2023-02-13 16:37 | PT.OTN ---
Current Diagnoses Paresthesia of skin (02/13/23) Physical Therapy Treatment Note PT-OP-A Visit Information Start: 01/16/23 13:32 Freq: Status: Active Protocol: Document 02/13/23 16:33 ED (Rec: 02/13/23 16:37 ED [id number]) Out-Patient Physical Therapy Visit Information Visit Information Visit Type Treatment Note Visit Note R hand paresthesia R hip Visit Start Time 04:00 Visit Stop Time 04:30 Total Visit Minutes 30 Visit Number 7 PT-OP-B Current Condition Start: 01/16/23 13:32 Freq: Status: Active Protocol: Document 01/16/23 15:33 ED (Rec: 01/16/23 15:44 ED [id number]) Current Condition History of Current Condition Onset Date 2019 Current Complaints R radiculopathy History of Current Condition Pt states that when she had her child in 2019 that she was experiencing pretty intense radiculopathy in her R hand and sometimes up her arm. She denies it going away after having her child. She is currently and is here for the same radiculopathy. 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 She notes that when she sleeps, she sometimes has her R hand over her head and will wake up d/t paresthesia in her hand. She states the paresthesia starts in her pinky and ring finger. PT-OP-C Subjective Start: 01/16/23 13:32 Freq: Status: Active Protocol: Document 02/13/23 16:33 ED (Rec: 02/13/23 16:37 ED [id number]) OP-PT Subjective Patient Comments Patient Comments Pt states her hip has been feeling better. She notes that her R hand paresthesia has been worse recently. She notes it's bad when she is reading, on her phone, doing her childrens' hair, and crafting. PT-OP-K Range of Motion Start: 01/16/23 13:32 Freq: Status: Active Protocol: Document 01/16/23 15:33 ED (Rec: 01/16/23 15:44 ED [id number]) Cervical Spine Range of Motion Cervical Spine Active Testing Position Sitting Flexion 50 Extension 60 Rotation Left 90 Rotation Right 90 Shoulder Goniometric Range of Motion Shoulder Right Active Shoulder ROM WFL Yes Testing Position Sitting Flexion 170 Abduction 170 Left Active Shoulder ROM WFL Yes Testing Position Sitting Flexion 170 Abduction 170 PT-OP-L Special Tests Start: 01/16/23 13:32 Freq: Status: Active Protocol: Document 01/16/23 15:33 ED (Rec: 01/16/23 15:44 ED [id number]) Special Tests Cervical Spine Special Tests Traction Test Results + Foraminal Compression Test Results - PT-OP-M Strength Start: 01/16/23 13:32 Freq: Status: Active Protocol: Document 01/16/23 15:33 ED (Rec: 01/16/23 15:44 ED [id number]) Shoulder Strength Shoulder Manual Muscle Testing Right Flexion 4+ Good+ Extension 4+ Good+ Abduction (C5) 4+ Good+ Left Flexion 4+ Good+ Extension 4+ Good+ Abduction (C5) 4+ Good+ PT-OP-Q Treatments Start: 01/16/23 13:32 Freq: Status: Active Protocol: Document 02/13/23 16:33 ED (Rec: 02/13/23 16:37 ED [id number]) Therapeutic Exercises Sidelying Exercises open book Sidelying Exercise Name open book Reps/Minutes x10 Sitting Exercises ulnar/median nerve glides Sitting Exercise Name median nerve glides Reps/Minutes x10 Other Exercises tendon gliding Other Exercise Name tendon gliding Reps/Minutes x10 cat cow Other Exercise Name cat cow & rotation Reps/Minutes x10 each way thread the needle Other Exercise Name thread the needle Equipment Used foam roller Reps/Minutes x10 PT-OP-T Assessment and Plan Start: 01/16/23 13:32 Freq: Status: Active Protocol: Document 02/13/23 16:33 ED (Rec: 02/13/23 16:37 ED [id number]) Physical Therapy Assessment Goals QuickDASH Classroom Paraprofessional Goal (LTG) Pt will improve QuickDash score by >9 points to a score of <18/100. LTG Duration 6 weeks % improvement Impairment % improvement Short Term Goal (STG) Pt will report 15% improvement in R hand paresthesia during daily activities and/or at night. STG Duration 3 weeks Senior Living Goal (LTG) Pt will report 40% improvement in R hand paresthesia during daily activities and/or at night. LTG Duration 6 weeks Assessment Summary Assessment PT and patient went over handout of carpal tunnel; patient's symptoms are consistent with carpal tunnel as her sensory distribution is in 3rd and 4th anterior digits. Discussed buying a wrist splint to maintain wrist in neutral position especially at night and during provocating activities such as reading, crafts, and hair styling. Informed patient it may take time for symptom resolution. Physical Therapy Plan Frequency and Duration Frequency of Treatment 2x/Week Duration of treatment (weeks) 10 Plan of Care Start Date 01/24/23 Plan of Care End Date 04/24/23 Therapeutic Interventions Therapeutic Interventions Home Exercise Program,Joint Mobilizations,Manual Therapy, Neuromuscular Re-education, Patient/Caregiver Education, Soft Tissue Mobilization, Taping,Therapeutic Activities, Therapeutic Exercises Next Visit Focus/Plan Next Note Type Treatment Note Next Visit Plan check paresthesia, glute matrix (weighted?), thoracic exercises (thread needle, open book), nerve glide progressions, banded walk, pigeon stretch, side plank lifts, step up variations, quadruped hip stretch, hip airplane
--- NOTE | 2023-02-18 10:47 | PT.OTN ---
Current Diagnoses Paresthesia of skin (02/18/23) Physical Therapy Treatment Note PT-OP-A Visit Information Start: 01/16/23 13:32 Freq: Status: Active Protocol: Document 02/18/23 10:44 ED (Rec: 02/18/23 10:47 ED [id number]) Out-Patient Physical Therapy Visit Information Visit Information Visit Type Treatment Note Visit Note R hand paresthesia R hip Visit Start Time 10:00 Visit Stop Time 10:45 Total Visit Minutes 45 Visit Number 8 PT-OP-B Current Condition Start: 01/16/23 13:32 Freq: Status: Active Protocol: Document 01/16/23 15:33 ED (Rec: 01/16/23 15:44 ED [id number]) Current Condition History of Current Condition Onset Date 2019 Current Complaints R radiculopathy History of Current Condition Pt states that when she had her child in 2019 that she was experiencing pretty intense radiculopathy in her R hand and sometimes up her arm. She denies it going away after having her child. She is currently and is here for the same radiculopathy. 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 She notes that when she sleeps, she sometimes has her R hand over her head and will wake up d/t paresthesia in her hand. She states the paresthesia starts in her pinky and ring finger. PT-OP-C Subjective Start: 01/16/23 13:32 Freq: Status: Active Protocol: Document 02/18/23 10:44 ED (Rec: 02/18/23 10:47 ED [id number]) OP-PT Subjective Patient Comments Patient Comments Pt states that the wrist brace has helped a lot. She has been wearing it for crafting and it helped decrease the time in which she starts getting paresthesia. Thinks she can decrease the frequency of her visits. PT-OP-K Range of Motion Start: 01/16/23 13:32 Freq: Status: Active Protocol: Document 01/16/23 15:33 ED (Rec: 01/16/23 15:44 ED [id number]) Cervical Spine Range of Motion Cervical Spine Active Testing Position Sitting Flexion 50 Extension 60 Rotation Left 90 Rotation Right 90 Shoulder Goniometric Range of Motion Shoulder Right Active Shoulder ROM WFL Yes Testing Position Sitting Flexion 170 Abduction 170 Left Active Shoulder ROM WFL Yes Testing Position Sitting Flexion 170 Abduction 170 PT-OP-L Special Tests Start: 01/16/23 13:32 Freq: Status: Active Protocol: Document 01/16/23 15:33 ED (Rec: 01/16/23 15:44 ED [id number]) Special Tests Cervical Spine Special Tests Traction Test Results + Foraminal Compression Test Results - PT-OP-M Strength Start: 01/16/23 13:32 Freq: Status: Active Protocol: Document 01/16/23 15:33 ED (Rec: 01/16/23 15:44 ED [id number]) Shoulder Strength Shoulder Manual Muscle Testing Right Flexion 4+ Good+ Extension 4+ Good+ Abduction (C5) 4+ Good+ Left Flexion 4+ Good+ Extension 4+ Good+ Abduction (C5) 4+ Good+ PT-OP-Q Treatments Start: 01/16/23 13:32 Freq: Status: Active Protocol: Document 02/18/23 10:44 ED (Rec: 02/18/23 10:47 ED [id number]) Therapeutic Exercises Sidelying Exercises glute matrix Sidelying Exercise Name clam, R. clam, hip flexion, s/ l abd Resistance 4# Reps/Minutes x10-15 ea Other Exercises banded walk Other Exercise Name lateral Resistance turquoise band Reps/Minutes 2x10 feet Therapeutic Activity Therapeutic Activity B stance RDL Name B stance RDL Reps/Minutes 3x8 Comments small PB > basketball > 10# step up Name knowles step down Reps/Minutes 3x8 Comments 8'' no UE assist for balance Neuro Re-Education Treatment Balance Activities hip airplanes Reps/Duration 2x3/leg PT-OP-T Assessment and Plan Start: 01/16/23 13:32 Freq: Status: Active Protocol: Document 02/18/23 10:44 ED (Rec: 02/18/23 10:47 ED [id number]) Physical Therapy Assessment Goals QuickDASH Weight Control Engineer Goal (LTG) Pt will improve QuickDash score by >9 points to a score of <18/100. LTG Duration 6 weeks % improvement Impairment % improvement Short Term Goal (STG) Pt will report 15% improvement in R hand paresthesia during daily activities and/or at night. STG Duration 3 weeks Weight Control Engineer Goal (LTG) Pt will report 40% improvement in R hand paresthesia during daily activities and/or at night. LTG Duration 6 weeks Assessment Summary Assessment Pt doing well now that she is wearing a wrist brace during paresthesia provoking activities such as crafting and doing her children's hair. Discussed reducing her visit frequency as she can perform her exercises at home and doesn't need to come to PT for more exercises. Physical Therapy Plan Frequency and Duration Frequency of Treatment 2x/Week Duration of treatment (weeks) 10 Plan of Care Start Date 01/24/23 Plan of Care End Date 04/24/23 Therapeutic Interventions Therapeutic Interventions Home Exercise Program,Joint Mobilizations,Manual Therapy, Neuromuscular Re-education, Patient/Caregiver Education, Soft Tissue Mobilization, Taping,Therapeutic Activities, Therapeutic Exercises Next Visit Focus/Plan Next Note Type Treatment Note Next Visit Plan check paresthesia, glute matrix (weighted?), thoracic exercises (thread needle, open book), nerve glide progressions, banded walk, pigeon stretch, side plank lifts, step up variations, quadruped hip stretch, hip airplane
--- NOTE | 2023-03-04 08:48 | PT.OPDS ---
Current Diagnoses Paresthesia of skin (02/18/23) Visit Care Team Role Provider Type Loree Ashton DO Attending Provider Physician Family Provider Primary Care Provider Referring Provider Specialty: Medical Address: [address] [place] [address], [address], [place], [address] Email: [email or web address] Visit Number Visit Number 8 Discharge Summary PT-OP-B Current Condition Start: 01/16/23 13:32 Freq: Status: Active Protocol: Document 01/16/23 15:33 ED (Rec: 01/16/23 15:44 ED [id number]) Current Condition History of Current Condition Onset Date 2019 Current Complaints R radiculopathy History of Current Condition Pt states that when she had her child in 2019 that she was experiencing pretty intense radiculopathy in her R hand and sometimes up her arm. She denies it going away after having her child. She is currently and is here for the same radiculopathy. 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 She notes that when she sleeps, she sometimes has her R hand over her head and will wake up d/t paresthesia in her hand. She states the paresthesia starts in her pinky and ring finger. PT-OP-C Subjective Start: 01/16/23 13:32 Freq: Status: Active Protocol: Document 02/18/23 10:44 ED (Rec: 02/18/23 10:47 ED [id number]) OP-PT Subjective Patient Comments Patient Comments Pt states that the wrist brace has helped a lot. She has been wearing it for crafting and it helped decrease the time in which she starts getting paresthesia. Thinks she can decrease the frequency of her visits. PT-OP-K Range of Motion Start: 01/16/23 13:32 Freq: Status: Active Protocol: Document 01/16/23 15:33 ED (Rec: 01/16/23 15:44 ED [id number]) Cervical Spine Range of Motion Cervical Spine Active Testing Position Sitting Flexion 50 Extension 60 Rotation Left 90 Rotation Right 90 Shoulder Goniometric Range of Motion Shoulder Right Active Shoulder ROM WFL Yes Testing Position Sitting Flexion 170 Abduction 170 Left Active Shoulder ROM WFL Yes Testing Position Sitting Flexion 170 Abduction 170 PT-OP-L Special Tests Start: 01/16/23 13:32 Freq: Status: Active Protocol: Document 01/16/23 15:33 ED (Rec: 01/16/23 15:44 ED [id number]) Special Tests Cervical Spine Special Tests Traction Test Results + Foraminal Compression Test Results - PT-OP-M Strength Start: 01/16/23 13:32 Freq: Status: Active Protocol: Document 01/16/23 15:33 ED (Rec: 01/16/23 15:44 ED [id number]) Shoulder Strength Shoulder Manual Muscle Testing Right Flexion 4+ Good+ Extension 4+ Good+ Abduction (C5) 4+ Good+ Left Flexion 4+ Good+ Extension 4+ Good+ Abduction (C5) 4+ Good+ PT-OP-T Assessment and Plan Start: 01/16/23 13:32 Freq: Status: Active Protocol: Document 03/04/23 08:42 ED (Rec: 03/04/23 08:48 ED [id number]) Physical Therapy Assessment Goals QuickDASH [employer] Hole Digger Goal (LTG) Pt will improve QuickDash score by >9 points to a score of <18/100. LTG Duration 6 weeks % improvement Impairment % improvement Short Term Goal (STG) Pt will report 15% improvement in R hand paresthesia during daily activities and/or at night. STG Duration 3 weeks Detention Goal (LTG) Pt will report 40% improvement in R hand paresthesia during daily activities and/or at night. LTG Duration 6 weeks Assessment Summary Assessment Pt will be discharged from PT at this time. PT and patient had discussion at last visit stating that if her symptoms were clearing up that with the recommended brace that she could be discharged if she felt comfortable with that. PT had recommended a wrist brace to keep wrist in neutral position and patient reported that as being very helpful for her. She no longer requires PT services. Physical Therapy Plan Discharge Physical Therapy Discharge Reasons Patient Request
== END 2023-03-06 14:16 | disposition home or self-care (01) ==
LOC: PHYS 10:00
PROVIDERS: Absent Provider Family Medicine; Family Provider Family Medicine; PCP Family Medicine; Referring Provider Family Medicine; Visit Provider Family Medicine
DX: R20.2 Paresthesia of skin (principal)
CPT/HCPCS: 97110; 97112; 97161; 97530

== ENCOUNTER → 2023-08-14 13:32 | Outpatient (CLI) | payer OTHER, SELFPAY | PROVIDERS: Family Provider Family Medicine; PCP Family Medicine; Visit Provider Physician Assistant | DX: J02.9 Acute pharyngitis, unspecified (principal) | CPT/HCPCS: 87070 ==

== ENCOUNTER → 2023-12-22 09:14 | Outpatient (CLI) | payer OTHER, SELFPAY ==
[2023-12-22 10:19] LABS: Add Manual Diff / Slide Review NO; Basophils Absolute Auto 0 /uL (0-100); Basophils Percent Auto 0.6 % (0-2); Eosinophils Absolute Auto 200 /uL (0-450); Eosinophils Percent Auto 2.3 % (2-4); Hematocrit 42.7 % (36-46); Hemoglobin 14.6 g/dL (12.0-16.0); Lymphocytes Absolute Auto 1500 /uL (1100-4500); Lymphocytes Percent Auto 23.2 % (25-40); Mean Corpuscular HGB Conc 34.2 % (30-36); Mean Corpuscular Hemoglobin 31.4 PG (26-34); Mean Corpuscular Volume 91.8 fL (80-100); Monocytes Absolute Auto 400 /uL (0-900); Monocytes Percent Auto 6.7 % (3-14); Neutrophils Absolute Auto 4400 /uL (1500-7000); Neutrophils Percent Auto 67.2 % (50-75); Platelet Count 215 X10^3/uL (150-400); Red Blood Cell Count 4.65 X10^6/uL (4.0-5.2); Red Cell Distribution Width 13.4 % (11.6-14.8); White Blood Cell Count 6.6 X10^3/uL (4.5-11.0)
[2023-12-22 11:03] LABS: TSH w/ Reflex to FT4 2.11 uIU/mL (0.47-4.68)
[2023-12-22 11:08] LABS: Ferritin 57 ng/mL (6-137)
== END ==
LOC: LAB 09:14
PROVIDERS: Family Provider Family Medicine; PCP Family Medicine; Referring Provider Family Medicine; Visit Provider Family Medicine
DX: Z00.01 Encounter for general adult medical examination with abnormal findings (principal)
CPT/HCPCS: 36415; 82728; 83036; 84443; 85025

== ENCOUNTER → 2024-02-04 09:41 | Outpatient (CLI) | payer OTHER, SELFPAY ==
[2024-02-04 11:20] LABS: Free T4, Direct Thyroxine 0.99 ng/dL (0.78-2.19)
[2024-02-04 11:34] LABS: Thyroid Stimulating Hormone 2.08 uIU/mL (0.47-4.68)
[2024-02-04 17:49] LABS: Free T3, Triiodothyronine Free 3.52 pg/mL (2.77-5.27)
== END ==
PROVIDERS: Family Provider Family Medicine; PCP Family Medicine; Referring Provider Family Medicine; Visit Provider Family Medicine
DX: E03.9 Hypothyroidism, unspecified (principal)
CPT/HCPCS: 36415; 84439; 84443; 84481

== ENCOUNTER → 2024-07-21 14:44 | Outpatient (CLI) | payer OTHER, SELFPAY ==
[2024-07-21 15:41] LABS: Hematocrit 45.2 % (36-46); Hemoglobin 15.3 g/dL (12.0-16.0); Mean Corpuscular HGB Conc 33.9 % (30-36); Mean Corpuscular Hemoglobin 31.2 PG (26-34); Platelet Count 223 X10^3/uL (150-400); Red Blood Cell Count 4.91 X10^6/uL (4.0-5.2); Red Cell Distribution Width 12.8 % (11.6-14.8); White Blood Cell Count 8.6 X10^3/uL (4.5-11.0)
== END ==
PROVIDERS: Family Provider Family Medicine; PCP Family Medicine; Referring Provider Family Medicine; Visit Provider Family Medicine
DX: K62.5 Hemorrhage of anus and rectum (principal)
CPT/HCPCS: 36415; 85027

== ENCOUNTER 2024-08-09 07:22 | Day surgery (SDC) | payer OTHER, SELFPAY ==
[2024-08-09] VITALS (7 sets, daily range): BP systolic 67–103; BP diastolic 44–68; PULSE 65–79; RESP 7–17; TEMP 36.3–36.6; O2SAT 96–97
--- NOTE | 2024-08-09 | PATH_ITS ---
[facility] Accession Number: [id number] No. of containers..01 Tissue . 01 Material submitted: . body - TUMOR @ 25CM . 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 Lymphovascular invasion not identified. Intact DNA mismatch repair proteins by immunohistochemistry; please see below. . . A. IMMUNOHISTOCHEMISTRY TESTING FOR MISMATCH REPAIR PROTEINS: . MLH1: Intact nuclear expression. MSH2: Intact nuclear expression. MSH6: Intact nuclear expression. PMS2: Intact nuclear expression. Background nonneoplastic tissue/internal control with intact nuclear expression. . INTERPRETATION: No loss of nuclear expression of MMR proteins: low probability of microsatellite instability-high (MSI-H)* . * There are exceptions to the above IHC interpretations. These results should not be considered in isolation, and clinical correlation with genetic counseling is recommended to assess the need for germline testing. . * This test was developed and the performance characteristics were validated by [facility]. It has not been cleared or approved by the U.S. Food and Drug Administration. MRV 08/11/2024 1538 Local . 01 Comment: As part of routine quality internship, Dr. Tobar has reviewed this case and agrees with the diagnosis of invasive adenocarcinoma. The finding of invasive adenocarcinoma was reported to Dr. Lewis via [facility] on 08/11/2024 at 2:45 p.m. . 01 Electronically signed: . Malvin Earl MD, PhD, Pathologist NPI- [id number] . 01 Gross description: . TUMOR @ 25CM: Received in formalin are 3 fragment(s) of cha, soft tissue measuring 0.2 x 0.2 x 0.2 cm to 0.5 x 0.3 x 0.2 cm submitted entirely in 1 cassette(s) /JOSE 08/10/2024 0141 Local . 01 Pathologist provided ICD-10: C18.9, K62.5 . 01 CPT . 743420, N74545, F62252 Specimen Comment: A courtesy copy of this report has been sent to [phone] Performed at: [address] [address], [place], [place] [id number] MD Won Tobar MD Phone: [phone]
[2024-08-09] MEDS: LACTATED RINGERS 1,000 ML 42 ML IV (07:50)
--- NOTE | 2024-08-09 08:27 | PM.HP.IH.1 ---
History of Present Illness History of Present Illness Date Patient Seen: 08/09/24 Chief complaint: SDC Narrative: Rectal bleeding [facility] Medical History BRBPR (bright red blood per rectum) Lower abdominal pain Bloody stool Paresthesia of right upper extremity GDM (gestational diabetes mellitus) Encounter for IUD removal (~08/14/22) Social History Smoking Status: Never smoker Meds Home Medications and Allergies Home Medications Medication Instructions Recorded Confirmed Type albuterol sulfate 90 mcg/actuation 2 puff inhalation Q4H PRN 08/14/22 08/09/24 Rx aerosol inhaler shortness of breath or wheezing #8.5 grams triamcinolone acetonide 0.1 % 1 applic topical DAILY PRN ear 12/22/23 08/09/24 Rx topical cream eczema #30 grams venlafaxine 150 mg 150 mg PO DAILY #90 caps 12/22/23 08/09/24 Rx capsule,extended release 24 hr levothyroxine 100 mcg tablet 100 mcg PO DAILY #90 tabs 02/16/24 08/09/24 Rx sodium,potassium,mag sulfates 17.5 See Rx Instructions PO .COMPLEX 07/26/24 Rx gram-3.13 gram-1.6 gram oral soln #354 mL (Suprep Bowel Prep Kit) Allergies Allergy/AdvReac Type Severity Reaction Status Date / Time sertraline [From Zoloft] Allergy Mild Panic Verified 08/09/24 07:36 attacks Exam Vital Signs (past 8 hours): - 08/09/24 07:38 Temperature 97.7 F Pulse Rate 79 Respiratory Rate 17 Blood Pressure 103/68 Pulse Oximetry 96 Oxygen Delivery Method Room Air Oxygen Delivery Method Room Air Narrative Exam Narrative: Oropharynx free of lesions Chest clear to auscultation percussion Cardiac exam reveals no S3 or murmur Assessment & Plan Assessment & Plan narrative: History of rectal bleeding of moderately dark blood. Rule out underlying hemorrhoids versus colitis. Versus solitary rectal ulcer syndrome. Risks, benefits, alternatives have been explained. Time-Based Coding :: [TOTAL MINUTES] spent with patient and on the chart (including review of chart, obtaining history, exam, reviewing outside data, placing orders, documenting exam and treatment plan, and counseling patient) on [DATE]. PROFEE Outside Sales Account Manager Document charge(s): No
--- NOTE | 2024-08-09 08:29 | PM.OP.COLON ---
Operative Date/Time/Diagnoses Date of procedure: 08/09/24 Pre-op diagnosis: See indication and findings Procedure & Clinicians Study performed: Colonoscopy Same procedure as scheduled: No Indications: Rectal bleeding Surgeon: Dalila Lewis Procedure Notes Procedure in detail: After informed consent was obtained the patient was placed in left lateral decubitus position. The video colonoscope was introduced the rectum slowly advanced cecum. Preparation was good. On slow withdrawal mucosa was carefully examined. The scope was removed. The patient tolerated procedure well. Blood loss none Complications none Sedation mac Findings 1. Semi circumferential ulcerated tumor approximately 4-5 cm long in the sigmoid colon between 20 and 25 cm. Biopsies were taken 2. Otherwise negative colonoscopy to cecum I will be in touch with Dr. Contreras about him following up on this patient.
--- NOTE | 2024-08-09 09:57 | DI.CT.S_ITS ---
PROCEDURE: CT CHEST ABD PEL W CON INDICATIONS: sigmoid colon mass TECHNIQUE: After the administration of intravenous contrast, 5 mm thick sections acquired from the lung apices to the symphysis. 5 mm coronal and sagittal reformats were performed, with additional 7 mm MIP reformats through the lungs. For radiation dose reduction, the following was used: automated exposure control, adjustment of mA and/or kV according to patient size. COMPARISON: [facility], US, US PELVIC COMPLETE, 09/02/2023, 10:51. FINDINGS: Image quality: Excellent. CHEST: Lower Neck: No enlarged lymph nodes. Thyroid: No thyroid nodules which require sonographic follow up, per consensus guidelines. Axillae: No enlarged lymph nodes. Chest Wall: Unremarkable. Lungs and Pleura: No pneumothorax or pleural effusions. No consolidation or suspicious nodules. Heart: Heart size is normal. No pericardial effusion. Thoracic Vessels: The aorta and pulmonary arteries demonstrate normal size. Mediastinum and Raysa: No enlarged lymph nodes. Esophagus: No wall thickening. No hiatal hernia. ABDOMEN: Liver: Small hemangioma in segment 8/7 measuring 2.4 cm, (4/76). Peripheral nodular discontinuous enhancement. No suspicious mass seen. Gallbladder: Absent. Biliary ducts: No biliary dilation. Pancreas: No ductal dilation. Spleen: Size is within normal limits. Adrenal Glands: No adrenal nodules. Kidneys and Ureters: No hydronephrosis. No solid mass. No complex renal cystic lesion which requires follow up. Stomach and Bowel: The appendix is not dilated. Probable small appendicular lith, (5/56). No periappendiceal fat stranding. No discrete colonic mass is identified. There are a few small superior rectal lymph nodes suspected. No dilated loops of bowel. No small bowel obstruction. Stomach is within normal limits. Peritoneum: No abnormal intraperitoneal fluid. No free air. Ventral Wall: No significant ventral hernia. Abdominal Nodes: No retroperitoneal or mesenteric adenopathy by size criteria. Vessels: Aorta and inferior vena cava are normal in size. PELVIS: Pelvic Organs: Anteverted uterus. The IUD is perforated through the right myometrium, (5/51). section scar. No fluid collection. Small right ovarian cyst suspected. Bladder: No bladder wall thickening, accounting for underdistention. Pelvic Nodes: No enlarged lymph nodes. Miscellaneous: No inguinal hernias are seen. Bones: No aggressive osseous abnormality. IMPRESSION: 1. Known sigmoid colonic mass is not appreciated. 2. Small superior rectal lymph nodes. Indeterminate. 3. Benign hemangioma in the right liver measuring 2.4 cm. 4. IUD is perforated through the right uterus. No fluid collection. Dictated by: Gaurav Dillard M.D. on 08/09/2024 at 12:09 Approved by: Gaurav Dillard M.D. on 08/09/2024 at 12:27
--- NOTE | 2024-08-09 10:21 | SUR.PHASEII ---
Patient discussed colonoscopy result with Dr. Cruz. Coordinated with Dr. Contreras's office and CT to get blood drawn and scheduled for CT. Patient aware to followup with Dr. Contreras's office to schedule surgery. Labs drawn and patient discharged with to lobby to await CT scan. IV remains in place for CT and radiology with D/C before patient goes home.
[2024-08-09 11:15] LABS: Add Manual Diff / Slide Review NO; Basophils Absolute Auto 0 /uL (0-100); Basophils Percent Auto 0.7 % (0-2); Eosinophils Absolute Auto 200 /uL (0-450); Eosinophils Percent Auto 3.8 % (2-4); Hematocrit 44.5 % (36-46); Hemoglobin 15.1 g/dL (12.0-16.0); Lymphocytes Absolute Auto 1600 /uL (1100-4500); Lymphocytes Percent Auto 24.8 % (25-40); Mean Corpuscular Hemoglobin 31.3 PG (26-34); Mean Corpuscular Volume 92.1 fL (80-100); Monocytes Absolute Auto 300 /uL (0-900); Neutrophils Absolute Auto 4200 /uL (1500-7000); Neutrophils Percent Auto 65.7 % (50-75); Platelet Count 208 X10^3/uL (150-400); Red Blood Cell Count 4.83 X10^6/uL (4.0-5.2); Red Cell Distribution Width 12.7 % (11.6-14.8); White Blood Cell Count 6.4 X10^3/uL (4.5-11.0)
[2024-08-09 11:26] LABS: Alanine Aminotransferase 40 IU/L (<35); Albumin 4.4 g/dL (3.5-5.0); Albumin Globulin Ratio 1.7 (1.0-2.8); Alkaline Phosphatase 99 U/L (38-126); Aspartate Aminotransferase 43 IU/L (14-36); BUN Creatinine Ratio 11.1 (6-22); Bilirubin Total 1.4 mg/dL (0.2-1.3); Blood Urea Nitrogen 8 mg/dL (7-17); Calcium 8.8 mg/dL (8.4-10.2); Carbon Dioxide 29 mmol/L (22-32); Chloride 105 mmol/L (98-107); Estimated Glomerular Filt Rate > 60 mL/min (>60); Globulin 2.6 g/dL (1.7-4.1); Glucose 97 mg/dL (70-100); HEMOLYSIS < 15 (0-50); Potassium 3.9 mmol/L (3.4-5.1); Sodium 141 mmol/L (137-145)
== END 2024-08-09 10:18 | disposition home or self-care (01) ==
PROVIDERS: Surgery; Family Provider Family Medicine; PCP Family Medicine; Referring Provider Internal Medicine Gastroenterology; Visit Provider Internal Medicine Gastroenterology
PROC: 0DJD8ZZ Inspection of Lower Intestinal Tract, Via Natural or Artificial Opening Endoscopic (ICD-10-PCS; CPT 45378; principal; 2024-08-09 08:30)
DX: K62.5 Hemorrhage of anus and rectum (principal)
CPT/HCPCS: 45380; 71260; 74177; 80053; 82378; 85025; J2704; Q9967

== ENCOUNTER 2024-08-13 07:10 | Day surgery (SDC) | payer OTHER, SELFPAY ==
[2024-08-11 10:36] VITALS: BMI 41.0
[2024-08-13] MEDS: LACTATED RINGERS 1,000 ML 42 ML IV ×2 (07:34→09:12)
[2024-08-13] MEDS: ACETAMINOPHEN 325 MG TABLET 975 MG PO (07:35)
[2024-08-13 07:42] VITALS: BP 98/70; PULSE 76; RESP 16; TEMP 36.7; O2SAT 96; BMI 41.5
--- NOTE | 2024-08-13 08:29 | PM.PREOP ---
Pre-operative Note Interval Note History & Physical reviewed/Exam performed by Physician: Yes Changes to H&P: No H&P completed within 30 days and has changed as indicated here:: see clinic note 08/10/24; consented for hysteroscopic IUD removal with Mirena IUD replacement
--- NOTE | 2024-08-13 08:37 | SUR.OPER ---
Lithotomy on padded OR bed, head on pillow, arms secured on padded arm boards at <90 degrees abduction. Legs secured in padded yellow fins stirrups.
--- NOTE | 2024-08-13 09:11 | P.OP_ITS ---
Operative Date/Time/Diagnoses Date of procedure: 08/13/24 Time of procedure: 09:00 Pre-op diagnosis: Perforated Mirena IUD Post-op diagnosis: same Procedure & Clinicians Procedure: Hysteroscopic IUD removal Mirena IUD insertion Same procedure as scheduled: Yes Indications: 39yo F with perforated Mirena IUD, counseled and consented for the above procedures. Surgeon: Candy Peace Click Yes if Unassisted: Yes Anesthesia Type: General Operative Notes Findings: Normal appearing uterine cavity. Perforated IUD removed intact. After new IUD insertion, hysteroscopy confirmed proper placement. Specimen(s): none sent Applied: implant(s) (Mirena IUD (lot [id number], exp 09/25/26)) Estimated Blood Loss (mL): 1 Blood products transfused: none Procedure in detail: The risks, benefits, indications and alternatives of the procedure were reviewed with the patient and informed consent was obtained. The pt was taken to the operating room where general anesthesia with LMA was obtained without difficulty. The pt was then placed in the low lithotomy position using gel- padded Star stirrups. Sequential compression devices were placed bilaterally for VTE prophylaxis. The pt was then prepped and draped in the sterile fashion. A sterile speculum was placed in the patient?s vagina and the cervix was visualized. A single tooth tenaculum was used to grasp the anterior lip of the cervix. Berto forceps were introduced into the cervix to grasp the IUD. With traction on the device, the IUD was able to be removed intact. The operative hysteroscope was first primed and pressure set. The operative hysteroscope was then advanced through the endocervical canal under direct visualization. The uterus was distended with warm saline, and a normal endometrial cavity was visualized. The hysteroscope was then removed, and a new Mirena IUD was then inserted with the plating and point assembly supervisor's elastic tape inserter. The hysteroscope was then reintroduced into the uterine cavity, and the IUD was visualized in proper placement within the endometrial cavity. The hysteroscope was then removed, and the IUD strings trimmed. The single tooth tenaculum was removed from the anterior lip of the cervix. The tenaculum site was noted to be hemostatic after direct pressure was applied. All instruments were then removed from the patient?s vagina. Hysteroscopic fluid deficit was 85cc of normal saline. The patient tolerated the procedure well. At the completion of the case the sponge and needle counts were correct x 2. The patient was taken to the PACU in stable condition. Complications: none Post-operative Condition: stable Disposition: PACU Plan for aftercare: Discharge to home once patient is meeting all discharge criteria.
[2024-08-13 09:24] VITALS: BP 99/53; PULSE 67; RESP 15; TEMP 36.6; O2SAT 94
[2024-08-13 09:29] VITALS: BP 98/53; PULSE 69; RESP 15; O2SAT 94
[2024-08-13 09:34] VITALS: BP 91/54; PULSE 65; RESP 16; O2SAT 94
[2024-08-13 09:47] VITALS: BP 102/63; PULSE 60; RESP 14; O2SAT 96
[2024-08-13 09:48] VITALS: BP 96/67; PULSE 63; RESP 13; TEMP 36.1; O2SAT 97
== END 2024-08-13 10:20 | disposition home or self-care (01) ==
PROVIDERS: Family Provider Family Medicine; PCP Family Medicine; Referring Provider Student in an Organized Health Care Education/Training Program; Visit Provider Student in an Organized Health Care Education/Training Program
PROC: 0UDB8ZZ Extraction of Endometrium, Via Natural or Artificial Opening Endoscopic (ICD-10-PCS; CPT 58558; principal; 2024-08-13 09:00)
DX: T83.89XA Other specified complication of genitourinary prosthetic devices, implants and grafts, initial encounter (principal); Z30.433 Encounter for removal and reinsertion of intrauterine contraceptive device
CPT/HCPCS: 58562; 58300; C1713; J2250; J2704; J3010; J7298

== ENCOUNTER → 2024-10-01 09:07 | Outpatient (CLI) | payer OTHER, SELFPAY ==
[2024-10-01 10:22] LABS: Free T3, Triiodothyronine Free 3.73 pg/mL (2.77-5.27); Free T4, Direct Thyroxine 1.34 ng/dL (0.78-2.19)
[2024-10-01 10:36] LABS: Thyroid Stimulating Hormone 0.506 uIU/mL (0.47-4.68)
[2024-10-02 07:09] LABS: Thyroid Peroxidase Antibodies 338 IU/mL (0-34)
[2024-10-03 13:08] LABS: Anti Thyroglobulin Antibody <1.0 IU/mL (0.0-0.9)
== END ==
PROVIDERS: Family Provider Family Medicine; PCP Family Medicine; Referring Provider Family Medicine; Visit Provider Family Medicine
DX: E03.9 Hypothyroidism, unspecified (principal)
CPT/HCPCS: 36415; 84439; 84443; 84481; 86376; 86800

== ENCOUNTER → 2025-01-18 | Outpatient (CLI) | payer OTHER, SELFPAY ==
--- NOTE | 2025-01-18 12:19 | DI.RAD.S_ITS ---
PROCEDURE: XR KNEE LT 3V INDICATIONS: rule out arthritis, other bony concern TECHNIQUE: 3 views of the knee were acquired. COMPARISON: None. FINDINGS: Bones: No fractures or dislocations. No suspicious bony lesions. Soft tissues: Small joint effusion. No suspicious soft tissue calcifications. IMPRESSION: Small joint effusion; otherwise no definite radiographic abnormality. If pain persists with conservative management, consider repeat plain films or cross sectional imaging such as CT or MRI for further assessment. Dictated by: Steve Mccray Miesha Interpreted: Scott Madsen MD on 01/18/2025 at 12:59 Transcribed by: [place] on 01/18/2025 at 13:00 Approved by: Scott Madsen M.D. on 01/19/2025 at 15:02
== END ==
PROVIDERS: PCP Family Medicine; Referring Provider Family Medicine; Visit Provider Family Medicine
DX: M25.562 Pain in left knee (principal); M25.462 Effusion, left knee; G89.29 Other chronic pain
CPT/HCPCS: 73562

== ENCOUNTER 2025-01-27 10:22 | Emergency (ER) | payer OTHER, SELFPAY ==
[2025-01-27 10:24] VITALS: BP 137/79; PULSE 87; RESP 18; TEMP 36.4; O2SAT 97; BMI 44.4
--- NOTE | 2025-01-27 10:31 | DI.US.S_ITS ---
PROCEDURE: US PERIPH VENOUS LOW EXTREM LT INDICATIONS: CALF PAIN. ON CHEMO THERAPY. TECHNIQUE: Real-time imaging, as well as color and pulse Doppler interrogation, were performed of the lower extremity deep veins from the inguinal ligament to the popliteal fossa, with documentation of the visualized calf veins. COMPARISON: None. FINDINGS: The common femoral, femoral and popliteal veins are normally compressible, and free of intraluminal thrombus. Color and pulse Doppler demonstrate normal phasic intraluminal flow. There is normal augmentation response to distal compression maneuver. There is occlusion in the proximal tibial vein and in the other tibial vein there is occlusion in the proximal to midportion. IMPRESSION: Tibial vein thrombosis. Dictated by: Jaz Gregg M.D. on 01/27/2025 at 11:29 Approved by: Jaz Gregg M.D. on 01/27/2025 at 11:30
--- NOTE | 2025-01-27 11:39 | ED.EXTPRO ---
HPI - Extremity Problem General Chief complaint: Extremity Problem,Nontraumatic Stated complaint: Left calf pain x 5 days Time Seen by Provider: 01/27/25 10:48 Source: patient Mode of arrival: Ambulatory History of Present Illness HPI Narrative: 39-year-old female with history of colon cancer currently undergoing chemo therapy here with nontraumatic left calf pain for 5 days. Patient reports no prior history of DVT but called Oncology office and was referred to ED to rule out DVT. She went for a walk the other day to see if it would relieve any type of cramping pain that she has and it did not. She did develop some transient numbness and tingling across the top of the outer foot but this went away on its own. No associated back pain. No fever. Related Data Previous Rx's ?Medication ?Instructions ?Recorded albuterol sulfate 90 mcg/actuation 2 puff inhalation Q4H PRN 08/14/22 aerosol inhaler shortness of breath or wheezing #8.5 grams triamcinolone acetonide 0.1 % 1 applic topical DAILY PRN ear 12/22/23 topical cream eczema #30 grams levothyroxine 100 mcg tablet 100 mcg PO DAILY #90 tabs 02/16/24 levonorgestrel (Mirena) 1 device intrauterine ONCE #1 ea 10/05/24 progesterone micronized 100 mg 100 - 400 mg (1 - 4 x 100 mg) PO 10/05/24 capsule BEDTIME #90 caps semaglutide (weight loss) 0.25 0.25 mg (0.5 mL) SUBCUT QWEEK #2 mL 10/05/24 mg/0.5 mL subcutaneous pen injector (Wegovy) venlafaxine 150 mg 150 mg PO DAILY #90 caps 01/19/25 capsule,extended release 24 hr rivaroxaban 15 mg (42)-20 mg (9) See Rx Instructions PO .COMPLEX 01/27/25 tablets in a starter pack (Xarelto #51 ea DVT-PE Treatment 30-Day Starter) Allergies Allergy/AdvReac Type Severity Reaction Status Date / Time sertraline (From Zoloft) Allergy Mild Panic Verified 01/18/25 11:53 attacks Review of Systems Review of Systems Narrative: Pertinent ROS obtained and negative except as stated in HPI Patient History Medical History Malpositioned IUD Paresthesia of right upper extremity GDM (gestational diabetes mellitus) Surgical History S/P section Family History Father Cancer Social History household members: spouse Smoking Status: Never smoker alcohol intake: current Smoking Status: Never smoker Exam Initial Vital Signs Initial Vital Signs: Vital Signs Temperature 97.6 F 01/27/25 10:24 Pulse Rate 87 01/27/25 10:24 Respiratory Rate 18 01/27/25 10:24 Blood Pressure 137/79 01/27/25 10:24 Pulse Oximetry 97 01/27/25 10:24 Oxygen Delivery Method Room Air 01/27/25 10:24 Constitutional: Well appearing, no acute distress Head: NCAT Cardiovascular: normal rate, appears well perfused Pulmonary: normal effort Extremities: No LE edema. There is discomfort of the posterior mid calf on the left without venous congestion. 2+ DP pulse in left leg. Normal sensation to light touch. 5/5 strength with dorsi and plantar flexion. Plantar flexion increases discomfort in the calf Skin: warm and dry Neurological: Alert Course Orders Ordered: ED Orders 01/27/25 10:31 US periph venous low extrem lt Stat Vital Signs Vital signs: Vital Signs - 8 hr 01/27/25 10:24 Temperature 97.6 F Pulse Rate 87 Respiratory Rate 18 Blood Pressure 137/79 Pulse Oximetry 97 Oxygen Delivery Method Room Air MDM - Extremity (Nontraumatic) MDM Narrative Medical decision making narrative: 39-year-old female currently following with Oncology for colon cancer here with nontraumatic left calf pain. No chest pain or shortness of breath. Vital signs are normal. Ultrasound does show tibial vein thrombosis. Specifically occlusion of the proximal tibial vein and in the other tibial vein there is occlusion in the proximal to midportion. Patient updated regarding this. She is prescribed Xarelto. There was increased risk of Xarelto combine with her SNRI. Discussed case with pharmacist who relates there would not be any superior anticoagulant option in this case. Patient is counseled regarding signs symptoms of bleeding and return precautions. She is referred to primary care for follow-up of her DVT Discharge Plan Departure Patient Disposition: Home Clinical Impression: Acute deep vein thrombosis of tibial vein Instructions: DI for Deep Vein Thrombosis, Rivaroxaban Activity Restrictions/Additional Instructions: Your ultrasound did show thrombosis in the tibial veins. Given this I have prescribed you a blood thinning medication called Xarelto to take. Please be advised that there is increased risk of bleeding while taking venlafaxine and Xarelto. Monitor closely for bleeding in you may return to the emergency department if you have concerns. You will need to follow up with your family doctor for recheck of this issue. Return to the emergency department for new symptoms such as chest pain or shortness of breath Prescriptions: New Xarelto DVT-PE Treat 30d Start 15 mg (42)- 20 mg (9) tablets,dose pack See Rx Instructions .ROUTE .COMPLEX Qty: 51 0RF Rx Instructions: take one-15 mg tablet twice daily for 21 days, then one-20 mg tablet once daily; must take with meal/food No Action venlafaxine 150 mg capsule,extended release 24hr 150 mg PO DAILY Qty: 90 3RF albuterol sulfate 90 mcg/actuation HFA aerosol inhaler 2 puff inhalation Q4H PRN (Reason: shortness of breath or wheezing) Qty: 8.5 3RF triamcinolone acetonide 0.1 % cream 1 applic topical DAILY PRN (Reason: ear eczema) Qty: 30 2RF levothyroxine 100 mcg tablet 100 mcg PO DAILY Qty: 90 3RF Mirena 21 mcg/24hr (up to 8 yrs) 52 mg intrauterine device 1 device intrauterine ONCE Qty: 1 0RF progesterone micronized 100 mg capsule 100 - 400 mg PO BEDTIME Qty: 90 1RF Wegovy 0.25 mg/0.5 mL pen injector 0.25 mg SUBCUT QWEEK Qty: 2 0RF Rx Instructions: administer weeks 1 through 4 of therapy Referrals: Loree Ashton DO [Primary Care Provider, Medical] Stand Alone Forms: Patient Portal/API
[2025-01-27 12:10] VITALS: BP 124/79; PULSE 82; RESP 16; O2SAT 97
== END 2025-01-27 12:12 | disposition home or self-care (01) ==
PROVIDERS: Emergency Provider Student in an Organized Health Care Education/Training Program; PCP Family Medicine
DX: I82.442 Acute embolism and thrombosis of left tibial vein (principal); C18.9 Malignant neoplasm of colon, unspecified; Z92.21 Personal history of antineoplastic chemotherapy
CPT/HCPCS: 93971; 99281; 99283

== ENCOUNTER → 2025-03-10 10:48 | Outpatient (CLI) | payer OTHER, SELFPAY ==
--- NOTE | 2025-03-10 10:49 | DI.MRI.S_ITS ---
PROCEDURE: MR KNEE LT WO CON INDICATIONS: Clicking and catching, patellar subluxation TECHNIQUE: Noncontrast sagittal PD fast spin echo and T2 fast spin echo with fat saturation, sagittal 3-D FLASH with fat saturation; coronal T1 spin echo and PD fast spin echo with fat saturation, and axial PD fast spin echo with fat saturation through the knee. COMPARISON: [facility], CR, XR KNEE LT 1TO2V, 02/16/2025, 7:49. FINDINGS: Image quality: Excellent. Menisci: Medial extrusion of the medial meniscus. Linear horizontal high T2 signal intensity traverses the middle and peripheral thirds of the extruded medial meniscal body, demonstrating inferior articular surface extension, indicating a trapped meniscal tear. Lateral meniscus is intact. Cruciate ligaments: The anterior and posterior cruciate ligaments appear intact. Medial structures: The medial collateral ligament appears intact. Visualized portions of the pes anserinus tendons appear normal. No abnormal bursal fluid. Lateral structures: The lateral collateral ligament, long and short heads of the biceps femoris tendon appear intact. The popliteus tendon appears normal. Iliotibial band appears normal. Anterior structures: The quadriceps and patellar tendons appear intact. Lateral patellar subluxation. Lateral ventral trochlear prominence with shallow trochlear groove. No edema in the infrapatellar fat pad. Bones and cartilage: No bone marrow contusions or fractures. Mild tricompartmental periarticular osteophyte formation. Moderate articular cartilage loss diffusely overlies the weight-bearing aspects of the medial femoral condyle and medial tibial plateau. Mild articular cartilage loss diffusely overlies the weight-bearing aspects of the lateral femoral condyle and lateral tibial plateau. Moderate articular cartilage loss overlies the lateral patellar facet. Articular cartilage delamination overlies the patellar apex medially. Joint space: There is a moderate knee joint effusion. Small proximal tibiofibular joint effusion. Trace Renee's cyst. Normal appearing synovial plicae are incidentally noted. IMPRESSION: 1. Trapped medial meniscal tear. 2. Tricompartmental osteoarthritis with associated articular cartilage loss. 3. Lateral patellofemoral friction syndrome. 4. Knee joint effusion. Dictated by: Vika Marroquin M.D. on 03/10/2025 at 11:40 Approved by: Vika Marroquin M.D. on 03/10/2025 at 11:43
== END ==
PROVIDERS: PCP Family Medicine; Referring Provider Family Medicine; Visit Provider Physician Assistant Surgical
DX: S83.242A Other tear of medial meniscus, current injury, left knee, initial encounter (principal); M17.12 Unilateral primary osteoarthritis, left knee; M22.8X2 Other disorders of patella, left knee; M25.462 Effusion, left knee
CPT/HCPCS: 73721